=== PATIENT | female | born 1965 | race Caucasian/White ===

== ENCOUNTER 2017-08-29 07:53 | Emergency (ER) | payer OTHER ==
[~2017-08-29] VITALS: Ht 172.7 cm; Wt 99.8 kg
--- NOTE | 2017-08-29 08:40 | ED NECK/BACK PAIN COMPLAINT ---
History of Present Illness General Chief Complaint: Low Back Pain/Injury Stated Complaint: LOW BACK PAIN Source: patient Exam Limitations: no limitations Vital Signs & Intake/Output Vital Signs & Intake/Output Vital Signs Date Time Temp Pulse Resp B/P B/P Pulse O2 O2 Flow FiO2 Mean Ox Delivery Rate 08/29 1138 98.7 90 17 152/82 96 Room Air 08/29 0758 98.6 108 18 168/85 98 Room Air Allergies Coded Allergies: NO KNOWN ALLERGIES (12/07/10) Reconcile Medications Ciprofloxacin HCl (Cipro) 500 MG TABLET 1 TAB PO BID DIVERTICULITIS Metronidazole (Flagyl) 500 MG TABLET 1 TAB PO TID ABD PAIN Tramadol HCl 50 MG TABLET 1-2 TAB PO BIDP PRN PAIN Triage Note: 52 YO FEAMLE TO TRIAGE C/O LOWER BACK PAIN X1 WEEK. STATES HAS BEEN ICING IT WITHOUT RELIEF, DENIES INJRUY TO AREA. DENIES URIANRY S/S. Triage Nurses Notes Reviewed? yes Onset: Abrupt Duration: week(s): (1), constant, continues in ED Timing: recent history Quality/Severity: moderate Location: lumbar spine Radiation: upper legs, lower legs Method of Injury: unknown HPI: 52-year-old female comes into the emergency room with complaints of low back pain. Symptoms were going on for the past week. Symptoms came out of nowhere. The pain radiates down both legs. No fever chills vomiting. She's had some associated lower abdominal pain. No dysuria or increased frequency or urgency with urination. No prior back surgeries. No prior abdominal surgeries. Pain in the back is worse with any type of movement. (Wellington Waggoner) Past History Travel History Traveled to [place] past 21 day No Medical History Any Pertinent Medical History? see below for history Neurological: NONE EENT: NONE Cardiovascular: NONE Respiratory: NONE Gastrointestinal: NONE Hepatic: NONE Renal: NONE Musculoskeletal: NONE Psychiatric: anxiety Endocrine: NONE Blood Disorders: NONE Cancer(s): NONE PRESALES CONSULTANT/Reproductive: NONE Surgical History Surgical History: NO ABDOMINAL OR BACK SURGERIES Psychosocial History What is your primary language Nepali Tobacco Use: Never used Family History Hx Contributory? No (Wellington Waggoner) Review of Systems Review of Systems Constitutional: Reports: no symptoms. Eyes: Reports: no symptoms. Ears, Nose, Throat, Mouth: Reports: no symptoms. Respiratory: Reports: no symptoms. Cardiovascular: Reports: no symptoms. Gastrointestinal/Abdominal: Reports: see HPI. Musculoskeletal: Reports: see HPI, back pain. Skin: Reports: no symptoms. Neurological/Psychological: Reports: no symptoms. All Other Systems: Reviewed and Negative (Wellington Waggoner) Physical Exam Physical Exam General Appearance: well developed/nourished, mild distress Head: atraumatic Eyes: Bilateral: normal appearance. Ears, Nose, Throat, Mouth: hearing grossly normal, moist mucous membrane Neck: normal inspection Respiratory: normal breath sounds, no respiratory distress Gastrointestinal: soft, tenderness (SUPRAPUBIC) Back: normal inspection, decreased range of motion, PAIN WITH ROM Extremities: normal range of motion Neurologic/Psych: awake, alert, oriented x 3, normal mood/affect Skin: intact, normal color, warm/dry Core Measures CVA/TIA Diagnosis: No (Wellington Waggoner) Progress Differential Diagnosis: cauda equina syn, herniated disc, myofascial strain, pyelo/UTI, sciatica, uti, KIDNEY STONE, DIVERTICULITIS Plan of Care: Orders Procedure Date/time Status Add-on Test (ER Only) 08/29 09 Active URINE 08/29 834 Complete URINALYSIS 08/29 826 Complete LIPASE 08/29 826 Complete COMPREHENSIVE METABOLIC PANEL 08/29 826 Complete CBC WITHOUT DIFFERENTIAL 08/29 826 Complete Laboratory Tests 08/29/17 0844: Anion Gap 13, Estimated GFR > 60, BUN/Creatinine Ratio 25.0, Glucose 167 H, Calcium 10.0, Total Bilirubin 0.7, AST 26, ALT 47, Alkaline Phosphatase 71, Total Protein 7.6, Albumin 4.4, Globulin 3.2, Albumin/Globulin Ratio 1.4, Lipase 58, CBC w Diff NO MAN DIFF REQ, RBC 4.40, MCV 90.2, MCH 31.6 H, MCHC 35.1, RDW 13.8, MPV 7.3 L, Gran % 76.0 H, Lymphocytes % 16.8 L, Monocytes % 5.3, Eosinophils % 1.7, Basophils % 0.2, Absolute Granulocytes 5.0, Absolute Lymphocytes 1.1 L, Absolute Monocytes 0.4, Absolute Eosinophils 0.1, Absolute Basophils 0 08/29/17 0835: Urine Color YEL, Urine Clarity HAZY H, Urine pH 7.0, Ur Specific [place] 1.010, Urine Protein NEG, Urine Ketones NEG, Urine Nitrite NEG, Urine Bilirubin NEG, Urine Urobilinogen 0.2, Ur Leukocyte Esterase SMALL H, Ur Microscopic SEDIMENT EXAMINED, Urine WBC 1-3 H, Ur Epithelial Cells MANY H, Urine Bacteria RARE H, Urine Hemoglobin NEG, Urine Glucose NEG, Urine Test NEGATIVE Diagnostic Imaging: Viewed by Me: CT Scan. Discussed w/RAD: CT Scan. Radiology Impression: PATIENT: MYRNA PHILLIPS PRESENT AGE: 52 PATIENT ACCOUNT NO: [id number] : 67 LOCATION: [facility] ORDERING PHYSICIAN: Wellington WHITTEN SERVICE DATE: 08/29/17 EXAM TYPE: CAT - CT ABD & PELVIS W/O IV CONTRAS EXAMINATION: CT ABDOMEN AND PELVIS WITHOUT CONTRAST CLINICAL INFORMATION: Lower abdominal pain COMPARISON: 11/19/2009 TECHNIQUE: Multidetector volumetric imaging was performed from the lung bases through the pubic symphysis. Sagittal and coronal reformatted images were obtained on the technologist workstation. Total exam dose-length product 1213 mGy-cm FINDINGS: The lack of intravenous contrast limits evaluation of the solid visceral organs including the liver, spleen, pancreas, and kidneys. LUNG BASES: The visualized lung bases are unremarkable. LIVER, GALLBLADDER, AND BILIARY TREE : There is low density in the right lobe of the liver with patchy areas of low density in the left lobe of the liver consistent with hepatic steatosis. The gallbladder is diffusely hyperdense suggesting hyperdense bile. There are filling defects as well consistent with gallstones. No gallbladder wall thickening or pericholecystic fluid however. PANCREAS: Limited non-contrast evaluation is normal. No juana-pancreatic fluid. SPLEEN: Limited non-contrast evaluation is normal. ADRENAL GLANDS: Normal; no adrenal mass. KIDNEYS AND URETERS: Limited non-contrast evaluation is normal. No hydronephrosis, hydroureter, or calculi seen. No perinephric stranding. GASTROINTESTINAL TRACT: Small bowel and colon are non-dilated. No bowel wall thickening. Mild sigmoid diverticulosis is present. There is very subtle pericolonic fluid, for example coronal image 57, adjacent the sigmoid colon.. The appendix is not seen but there are no right lower quadrant inflammatory changes. ABDOMINAL WALL: Small fat-containing umbilical hernia. LYMPH NODES: No pathologically enlarged lymph nodes in the abdomen or pelvis. VASCULAR: Normal caliber abdominal aorta. BLADDER: Unremarkable. PELVIC VISCERA: Myomatous uterus. No adnexal mass. OSSEOUS STRUCTURES: There are degenerative changes of the spine, sacroiliac joints, and hips but no acute or suspicious osseous abnormality. IMPRESSION: In a background of mild sigmoid diverticulosis, there is very subtle fluid and fat stranding adjacent the sigmoid colon, suggesting very early or mild acute diverticulitis. No abscess or perforation. Cholelithiasis without evidence of acute cholecystitis. DICTATED BY: Dennis Cormier MD DATE/TIME DICTATED:1114 PRINCIPAL HARDWARE ARCHITECT:FELECIA DATE/TIME TRANSCRIBED:08/29/171114 CONFIDENTIAL, DO NOT COPY WITHOUT APPROPRIATE AUTHORIZATION. <Electronically signed in Other Vendor System> SIGNED BY: Dennis Cormier MD 08/29/17 113 (Jorge WHITTEN,[place]) Departure Departure Disposition: HOME OR SELF CARE Condition: Stable Clinical Impression Primary Impression: Diverticulitis Secondary Impressions: Back pain Referrals: Romulo Rubin MD (PCP/Family) Additional Instructions: Take ciprofloxacin Flagyl and tramadol for pain. Follow-up with [facility] urologist provided. Return if any concerns worsening symptoms. Please go over all results of today's visit with your primary care doctor. Contact your primary care doctor to let them know you were here in the emergency room. There may be nonspecific findings which may not be related to your visit today here in the emergency room but may require further evaluation and chronic monitoring by your primary care doctor. If you had a laceration today the chance of foreign body always remains. You should follow-up with your primary care doctor for recheck in 3-5 days for a wound check. If you had an x-ray done there is a chance that a fracture could have been missed on initial read and you should follow-up with your primary care doctor for repeat x-rays if symptoms persist. If your blood pressure was elevated here in the emergency room please have rechecked by [facility] primary care doctor within the next 48. If you were prescribed a narcotic here in the emergency room or any type of controlled substances you're not allowed to drive while taking this medication or operate any type of heavy machinery. Narcotics can make you feel lightheaded dizziness nausea and can cause constipation. You may need to pickle processor a stool softener. Thank you for choosing [facility] emergency room. Please return to the emergency room immediately if you have any other concerns worsening of symptoms. Departure Forms: Customer Survey General Discharge Information Prescriptions: Current Visit Scripts Ciprofloxacin HCl (Cipro) 1 TAB PO BID #14 TAB Metronidazole (Flagyl) 1 TAB PO TID #21 TAB Tramadol HCl 1-2 TAB PO BIDP PRN PAIN #15 TAB Comments 08/29/2017 12:51:55 PM Patient clinically looks well. Patient is in no apparent distress. Patient is nontoxic-appearing. No evidence of perforation or abscess. Back pain I feel is more muscular in nature but could be radiated pain from the abdominal pain. Patient referred to institute director. Return if any other concerns. (Wellington Waggoner) PA/[employer]INNER [employer]CR[employer] Co-Sign Statement Statement: ED Attending supervision documentation- I saw and evaluated the patient. I have also reviewed all the pertinent lab results and diagnostic results. I agree with the findings and the plan of care as documented in the PA's/SPINNER CONCRETE PIPE's documentation. x I have reviewed the ED Record and agree with the PA's/SPINNER CONCRETE PIPE's documentation. [] Additions or exceptions (if any) to the PAs/SPINNER CONCRETE PIPE's note and plan are summarized below: [] (Marce DAVIS,[place])
[2017-08-29 08:51] LABS: ABSOLUTE BASOPHIL COUNT 0 /CUMM (0.0-0.2); ABSOLUTE EOSINOPHIL COUNT 0.1 /CUMM (0.0-0.7); ABSOLUTE LYMPH COUNT 1.1 /CUMM (1.2-3.4); ABSOLUTE MONOCYTE COUNT 0.4 /CUMM (0.10-0.60); BASOPHIL % 0.2 % (0.0-2.0); EOSINOPHIL % 1.7 % (0-5); HEMATOCRIT 39.7 % (37-47); MEAN CORPUSCULAR HGB 31.6 PG (27.0-31.0); MEAN CORPUSCULAR HGB CONC 35.1 G/DL (33.0-37.0); MEAN CORPUSCULAR VOLUME 90.2 FL (81.0-99.0); MEAN PLATELET VOLUME 7.3 FL (7.4-10.4); PLATELET COUNT 302 /CUMM (130-400); RBC DISTRIBUTION WIDTH 13.8 % (11.5-14.5); WHITE BLOOD CELL COUNT 6.6 /CUMM (4.8-10.8)
--- NOTE | 2017-08-29 11:35 | CT SCAN REPORT ---
EXAMINATION: CT ABDOMEN AND PELVIS WITHOUT CONTRAST CLINICAL INFORMATION: Lower abdominal pain COMPARISON: 11/19/2009 TECHNIQUE: Multidetector volumetric imaging was performed from the lung bases through the pubic symphysis. Sagittal and coronal reformatted images were obtained on the technologist workstation. Total exam dose-length product 1213 mGy-cm FINDINGS: The lack of intravenous contrast limits evaluation of the solid visceral organs including the liver, spleen, pancreas, and kidneys. LUNG BASES: The visualized lung bases are unremarkable. LIVER, GALLBLADDER, AND BILIARY TREE: There is low density in the right lobe of the liver with patchy areas of low density in the left lobe of the liver consistent with hepatic steatosis. The gallbladder is diffusely hyperdense suggesting hyperdense bile. There are filling defects as well consistent with gallstones. No gallbladder wall thickening or pericholecystic fluid however. PANCREAS: Limited non-contrast evaluation is normal. No juana-pancreatic fluid. SPLEEN: Limited non-contrast evaluation is normal. ADRENAL GLANDS: Normal; no adrenal mass. KIDNEYS AND URETERS: Limited non-contrast evaluation is normal. No hydronephrosis, hydroureter, or calculi seen. No perinephric stranding. GASTROINTESTINAL TRACT: Small bowel and colon are non-dilated. No bowel wall thickening. Mild sigmoid diverticulosis is present. There is very subtle pericolonic fluid, for example coronal image 57, adjacent the sigmoid colon.. The appendix is not seen but there are no right lower quadrant inflammatory changes. ABDOMINAL WALL: Small fat-containing umbilical hernia. LYMPH NODES: No pathologically enlarged lymph nodes in the abdomen or pelvis. VASCULAR: Normal caliber abdominal aorta. BLADDER: Unremarkable. PELVIC VISCERA: Myomatous uterus. No adnexal mass. OSSEOUS STRUCTURES: There are degenerative changes of the spine, sacroiliac joints, and hips but no acute or suspicious osseous abnormality. IMPRESSION: In a background of mild sigmoid diverticulosis, there is very subtle fluid and fat stranding adjacent the sigmoid colon, suggesting very early or mild acute diverticulitis. No abscess or perforation. Cholelithiasis without evidence of acute cholecystitis.
[2017-08-29 11:38] VITALS: BP 152/82
[2017-08-29] MEDS ORDERED: CIPRO500 M1 PO (11:59)
[2017-08-29] MEDS ORDERED: TRAMADOL HCL50 M1 PO (11:59)
[2017-08-29] MEDS ORDERED: FLAGYL500 MG PO (11:59)
== END 2017-08-29 12:10 ==
LOC: ERH 07:53
PROVIDERS: Physician Assistant Medical
DX: K57.92 Diverticulitis of intestine, part unspecified, without perforation or abscess without bleeding (principal)
CPT/HCPCS: 74176; 81001; 81025; 96372; J1885